=== PATIENT | female | born 1965 | race Caucasian/White ===

== ENCOUNTER 2016-04-29 13:24 | Emergency (ER) | payer OTHER ==
[2016-04-29 14:13] VITALS: BP 107/58
[2016-04-29] MEDS ORDERED: AMOX1TAB61 PO (15:02)
--- NOTE | 2016-04-29 15:03 | PHYS DOC ---
Past Medical History Past Medical History: No Pertinent History Past Surgical History: Hysterectomy Alcohol Use: None Drug Use: None Adult General Chief Complaint Chief Complaint: COUGH HPI HPI Patient is a 50 year old female presents emergency department stating that she has had a cough and congestion for the last 3 or 4 days. She states that she is coughing up green sputum. She states that she has slight tenderness in the maxillary sinus areas although she denies any frontal tenderness. She is taken [id number] medication without relief. She denies fever, chills or nausea vomiting. Review of Systems Review of Systems Constitutional: Denies fever or chills [] Eyes: Denies change in visual acuity, redness, or eye pain [] HENT: Denies nasal congestion or sore throat [] Respiratory: cough denies shortness of breath [] Cardiovascular: No additional information not addressed in HPI [] GI: Denies abdominal pain, nausea, vomiting, bloody stools or diarrhea [] : Denies dysuria or hematuria [] Musculoskeletal: Denies back pain or joint pain [] Integument: Denies rash or skin lesions [] Neurologic: Denies headache, focal weakness or sensory changes [] Allergies Allergies Allergies Coded Allergies Type Severity Reaction Last Updated Verified meperidine Allergy Intermediate 04/29/16 Yes Physical Exam Physical Exam Constitutional: Well developed, well nourished, no acute distress, non-toxic appearance. [] HENT: Normocephalic, atraumatic, bilateral external ears normal, oropharynx moist, no oral exudates, nose normal. Bilateral TM normal, throat without erythema. Bilateral anterior cervical adenopathy. no frontal or maxillary sinus tenderness. Eyes: PERRLA, EOMI, conjunctiva normal, no discharge. [] Neck: Normal range of motion, no tenderness, supple, no stridor. [] Cardiovascular:Heart rate regular rhythm, no murmur [] Lungs & Thorax: Bilateral breath sounds clear to auscultation [] Skin: Warm, dry, no erythema, no rash. [] Back: No tenderness Extremities: No tenderness, no cyanosis, no clubbing, ROM intact, no edema. [] Neurologic: Alert and oriented X 3, normal motor function, normal sensory function, no focal deficits noted. [] Psychologic: Affect normal, judgement normal, mood normal. [] Current Patient Data Vital Signs Vital Signs Date Time Temp Pulse Resp B/P Pulse Ox O2 Delivery O2 Flow Rate FiO2 04/29/16 14:13 98.0 79 18 97 Room Air 98.0 EKG EKG [] Radiology/Procedures Radiology/Procedures [] Course & Med Decision Making Course & Med Decision Making Pertinent Labs and Imaging studies reviewed. (See chart for details) Patient will be placed on Augmentin for sinusitis. Recommended Tylenol or Ibuprofen for fever, chills. Drink plenty of fluids such as water, gatorade, or propel. Signs and symptoms to return to the emergency department have been provided. Patient agrees with discharge instructions, treatment regimen and followup recommendations. [] Dragon Disclaimer Dragon Disclaimer This electronic medical record was generated, in whole or in part, using a voice recognition dictation system. Departure Departure Impression: Primary Impression: Sinusitis, acute Disposition: HOME, SELF-CARE Condition: STABLE Referrals: UNKNOWN PCP NAME (PCP) Patient Instructions: Sinusitis, [id number] Additional Instructions: Home to rest Medication as prescribed Tylenol or Ibuprofen for fever, chills or generalized body aches and discomfort Drink plenty of fluids such as water, gatorade or propel Followup with primary care provider in 5-7 days Return to emergency department as needed for signs and symptoms that become worse. Scripts Amoxicillin/Potassium Clav (Augmentin 875-125 Tablet)1 Each Tablet1 Tab PO BID # 20 TAB Prov:ANGELA BOWENS NP 04/29/16 ANGELA BOWENS NP Apr 29, 2016 15:03
== END 2016-04-29 15:21 | disposition home or self-care (01) ==
LOC: ER 13:24
DX: J01.90 Acute sinusitis, unspecified (principal); Z90.710 Acquired absence of both cervix and uterus; Z88.8 Allergy status to other drugs, medicaments and biological substances
CPT/HCPCS: 99283

== ENCOUNTER 2016-09-24 12:18 | Emergency (ER) | payer SELFPAY ==
[~2016-09-24 12:18] MED LIST: AMOX1TAB61 PO
== END 2016-09-24 12:35 | disposition left against medical advice (07) ==
LOC: ER 12:18
DX: S61.254A Open bite of right ring finger without damage to nail, initial encounter (principal); Z53.21 Procedure and treatment not carried out due to patient leaving prior to being seen by health care provider; W50.3XXA Accidental bite by another person, initial encounter; Y93.89 Activity, other specified; Y92.89 Other specified places as the place of occurrence of the external cause; Y99.8 Other external cause status

== ENCOUNTER 2017-02-20 20:17 | Emergency (ER) | payer SELFPAY ==
--- NOTE | 2017-02-20 21:18 | PHYS DOC ---
Past Medical History Past Medical History: No Pertinent History Past Surgical History: Hysterectomy Alcohol Use: None Drug Use: None Adult General Chief Complaint Chief Complaint: Congestion HPI HPI Patient is a 51 year old female who presents with sinus congestion and a cough. She states been going on for 5 day she picked it up from a family member. She denies any fevers, she feel short of breath occasionally. She denies any neck pain or headache. Review of Systems Review of Systems Constitutional: Denies fever or chills [] Eyes: Denies change in visual acuity, redness, or eye pain [] HENT: As it for green nasal discharge Respiratory: Positive for productive cough Cardiovascular: No additional information not addressed in HPI [] GI: Denies abdominal pain, nausea, vomiting, bloody stools or diarrhea [] : Denies dysuria or hematuria [] Musculoskeletal: Denies back pain or joint pain [] Integument: Denies rash or skin lesions [] Neurologic: Denies headache, focal weakness or sensory changes [] Endocrine: Denies polyuria or polydipsia [] All other systems were reviewed and found to be within normal limits, except as documented in this note. Allergies Allergies Allergies Coded Allergies Type Severity Reaction Last Updated Verified meperidine Allergy Intermediate 04/29/16 Yes Physical Exam Physical Exam Constitutional: Well developed, well nourished, no acute distress, non-toxic appearance. [] HENT: Normocephalic, atraumatic, bilateral external ears normal, oropharynx moist, no oral exudates, nose normal. Tender to palpation over the maxillary and frontal sinuses Eyes: PERRLA, EOMI, conjunctiva normal, no discharge. [] Neck: Normal range of motion, no tenderness, supple, no stridor. [] Cardiovascular:Heart rate regular rhythm, no murmur [] Lungs & Thorax: Bilateral breath sounds clear to auscultation [] Abdomen: Bowel sounds normal, soft, no tenderness, no masses, no pulsatile masses. [] Skin: Warm, dry, no erythema, no rash. [] Back: No tenderness, no CVA tenderness. [] Extremities: No tenderness, no cyanosis, no clubbing, ROM intact, no edema. [] Neurologic: Alert and oriented X 3, normal motor function, normal sensory function, no focal deficits noted. [] Psychologic: Affect normal, judgement normal, mood normal. [] EKG EKG [] Radiology/Procedures Radiology/Procedures Chest x-ray did not show any focal consolidations, bony abnormality's, pneumothorax,, as interpreted by me. Impressions: Sinusitis Course & Med Decision Making Course & Med Decision Making Pertinent Labs and Imaging studies reviewed. (See chart for details) Her symptoms are consistent with sinusitis. Been going on for 5 or more days therefore will treat with Augmentin for 7 days. She can also use Claritin over- the-counter. Return precautions given. She is agreeable to the plan being discharged in stable condition at this time. Her vitals are stable. She does not have a fever or tachypnea or hypoxemia. Dragon Disclaimer Dragon Disclaimer This electronic medical record was generated, in whole or in part, using a voice recognition dictation system. Departure Departure Impression: Primary Impression: Sinusitis, acute Disposition: 01 HOME, SELF-CARE Condition: STABLE Referrals: NO PCP (PCP) Patient Instructions: Sinusitis Additional Instructions: Her seen tonight for your sinus infection. Your chest x-ray did not show any signs of infection. Your being discharged home with Augmentin for 7 days. He can also use [id number] Claritin for nasal congestion. You will need to follow up with her primary care physician within the next week. Return back to ER if you have fevers, severe headache, neck pain, or other concerns. Scripts Amoxicillin/Potassium Clav (AUGMENTIN 875-125 TABLET) 1 Each Tablet 1 TAB PO BID, #14 TAB Prov: OSIEL ROBERTO MD 02/20/17 OSIEL ROBERTO MD Feb 20, 2017 21:18
[2017-02-20] MEDS ORDERED: AMOX1TAB61 PO (22:17)
--- NOTE | 2017-02-21 07:58 | RAD ---
Chest, 2 views, 02/20/2017: History: Productive cough The heart size and pulmonary vascularity are normal. No pulmonary infiltrates are seen. There is no evidence of pleural fluid. There is a minimal upper thoracic scoliosis. IMPRESSION: No acute cardiopulmonary abnormality is detected.
== END 2017-02-20 22:48 | disposition home or self-care (01) ==
LOC: ER 20:17
DX: J01.90 Acute sinusitis, unspecified (principal); Z88.8 Allergy status to other drugs, medicaments and biological substances
CPT/HCPCS: 71020; 99284

== ENCOUNTER 2017-09-25 11:14 | Emergency (ER) | payer SELFPAY ==
[2017-09-25] MEDS: TETRACAINE 0.5% OPHTH SOLUTION 4ML BOTTLE. OD (12:14)
[2017-09-25] MEDS: FLUORESCEIN OPHTH TEST STRIP. OD (12:17)
== END 2017-09-25 13:02 | disposition home or self-care (01) ==
LOC: ER 11:14
DX: S05.91XA Unspecified injury of right eye and orbit, initial encounter (principal); Z90.710 Acquired absence of both cervix and uterus; Z88.5 Allergy status to narcotic agent; X58.XXXA Exposure to other specified factors, initial encounter; Y93.89 Activity, other specified; Y92.89 Other specified places as the place of occurrence of the external cause; Y99.8 Other external cause status
CPT/HCPCS: 99283

== ENCOUNTER 2019-11-22 12:14 | Emergency (ER) | payer SELFPAY ==
[~2019-11-22] VITALS: Ht 165.1 cm; Wt 65.9 kg
[2019-11-22 13:20] VITALS: BP 121/73
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
[2019-11-22] MEDS ORDERED: ORPHENADRINE CITRATE 60 MG/2 ML VIAL. IM ONE (14:00)
[2019-11-22] MEDS ORDERED: HYDROcodone/APAP 5/325MG 1 TAB TABLET PO ONE (14:00)
--- NOTE | 2019-11-22 14:23 | RAD ---
Chest PA and right rib series 4 views: Reason for examination: Fell with rib pain. Comparison is made to previous chest dated 02/20/2017. The heart size is normal. Mediastinum is unremarkable. Lung marley are clear. No acute bony abnormalities are seen. 4 views of the right ribs show no definite site of fracture. IMPRESSION: No acute cardiopulmonary disease. No rib fractures evident. Electronically signed by: Melissa Thorne MD (11/22/2019 2:20 PM) RASHARD
[2019-11-22] MEDS ORDERED: ORPH100T PO (14:29)
[2019-11-22] MEDS ORDERED: HYDR-3164 PO (14:29)
== END 2019-11-22 14:31 | disposition home or self-care (01) ==
LOC: ER 12:14
DX: S20.211A Contusion of right front wall of thorax, initial encounter (principal); Z90.710 Acquired absence of both cervix and uterus; Z88.8 Allergy status to other drugs, medicaments and biological substances; W22.8XXA Striking against or struck by other objects, initial encounter; Y93.89 Activity, other specified; Y92.89 Other specified places as the place of occurrence of the external cause; Y99.8 Other external cause status
CPT/HCPCS: 71101; 96372; 99283; J2360

== ENCOUNTER 2020-04-18 20:47 | Emergency (ER) | payer SELFPAY ==
[~2020-04-18] VITALS: Ht 165.1 cm; Wt 68.1 kg
[~2020-04-18 20:47] MED LIST changes: +HYDR-3164 PO; +ORPH100T PO
[2020-04-18 21:53] LABS: BILIRUBIN,URINE NEGATIVE (NEG); CLARITY,URINE CLEAR; COLOR,URINE YELLOW; NITRITE,URINE NEGATIVE (NEG); PROTEIN,URINE NEGATIVE (NEG-TRACE); UROBILINOGEN,URINE 0.2 mg/dL (0.2 mg/dL)
[2020-04-18 22:13] LABS: AMORPHOUS SEDIMENT,UR PRESENT /HPF; BACTERIA,URINE 0 /HPF (0-FEW); RBC,URINE 0 /HPF (0-2)
[2020-04-18] MEDS ORDERED: METH4TAB2 PO (22:53)
[2020-04-18] MEDS ORDERED: HYDR-2761 PO (22:53)
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
--- NOTE | 2020-04-18 23:11 | RAD ---
EXAM: CT Lumbar Spine without IV contrast INDICATION: Reason: pain / Spl. Instructions: / History: TECHNIQUE: Multi-detector row CT images were obtained through the lumbar spine without the use of IV contrast. Post-processing sagittal and coronal reconstructed images were obtained for interpretation . All CT scans performed at this facility utilize dose optimization techniques as appropriate to the exam, including the following: Automated exposure control and adjustment of the mA and/or KV accordin g to patient size (this includes techniques or standardized protocols for targeted exams where dose i s indication/reason for exam). COMPARISON: None FINDINGS: The lowest fully formed disc is referred to as the L5-S1 level. There are 5 lumbar type vertebrae. ALIGNMENT: Subtle anterolisthesis of L5 on S1 is present. Otherwise alignment is unremarkable. OSSEOUS: Mild generalized demineralization is present. There are chronic bilateral pars defects at L 5. No acute fracture or aggressive appearing bony lesions. Mild subchondral sclerosis at S1 is presen t. DISC SPACES: Disc space narrowing is mildly apparent at L5-S1. FACET JOINTS: Unremarkable. SPINAL CANAL: Unremarkable. NEUROFORAMINA: Mild to moderate bilateral foraminal narrowing at L5-S1 is present due to disc space narrowing and mild anterolisthesis. SOFT TISSUES: Unremarkable. 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 No acute or aggressive osseous lesions and no bony central canal stenosis shown on noncontrast CT but mild bilateral foraminal narrowing at this level is noted. Electronically signed by: Vale Rodrigues MD (04/18/2020 11:00 PM) [facility] [place]
[2020-04-18 23:20] VITALS: BP 123/70
[2020-04-18] MEDS ORDERED: HYDROcodone/APAP 5/325MG 1 TAB TABLET PO ONE (23:30)
[2020-04-18] MEDS ORDERED: predniSONE 10 MG TABLET PO ONE (23:30)
== END 2020-04-18 23:25 | disposition home or self-care (01) ==
LOC: ER 20:47
DX: M54.41 Lumbago with sciatica, right side (principal); Z90.710 Acquired absence of both cervix and uterus; Z88.8 Allergy status to other drugs, medicaments and biological substances
CPT/HCPCS: 72131; 81001; 87086; 99284; J7512

== ENCOUNTER 2020-05-11 09:01 | Emergency (ER) | payer SELFPAY ==
[~2020-05-11] VITALS: Ht 165.1 cm; Wt 70.5 kg
[~2020-05-11 09:01] MED LIST changes: +HYDR-2761 PO; +METH4TAB2 PO
--- NOTE | 2020-05-11 09:28 | PHYS DOC ---
Past Medical History Past Medical History: No Pertinent History Past Surgical History: Hysterectomy Smoking Status: Never Smoker Alcohol Use: None Drug Use: None General Adult EDM: Chief Complaint: PAIN ON URINATION HPI: HPI: Patient is a 54 year old female presenting to the ED today complaining of foul-smelling urine that began 2 days ago after having intercourse. Patient denies any concerns for STDs. She believes she has a UTI. Denies any fever. Denies any abdominal pain, nausea or vomiting. Review of Systems: Review of Systems: Constitutional: Denies fever or chills. [] GI: Denies abdominal pain, nausea, vomiting, bloody stools or diarrhea. [] : Reports foul-smelling urine. Denies dysuria. [] Musculoskeletal: Denies back pain or joint pain. [] Integument: Denies rash. [] Neurologic: Denies headache, focal weakness or sensory changes. [] Psychiatric: Denies depression or anxiety. [] Heart Score: Risk Factors: Risk Factors: DM, Current or recent (<one month) smoker, HTN, HLP, family history of CAD, obesity. Risk Scores: Score 0 - 3: 2.5% MACE over next 6 weeks - Discharge Home Score 4 - 6: 20.3% MACE over next 6 weeks - Admit for Clinical Observation Score 7 - 10: 72.7% MACE over next 6 weeks - Early Invasive Strategies Allergies: Allergies: Allergies Coded Allergies Type Severity Reaction Last Updated Verified ketorolac Allergy Severe Pt states "I woke up in ICU" 04/18/20 Yes meperidine Allergy Severe 04/18/20 Yes Physical Exam: PE: Constitutional: Well developed, well nourished, no acute distress, non-toxic appearance. [] Skin: Warm, dry, no erythema, no rash. [] Back: No tenderness, no CVA tenderness. [] Extremities: No tenderness, no cyanosis, no clubbing, ROM intact, no edema. [] Neurologic: Alert and oriented X 3, normal motor function, normal sensory function, no focal deficits noted. [] Psychologic: Affect normal, judgement normal, mood normal. [] EKG: EKG: [] Radiology/Procedures: Radiology/Procedures: [] Course & Med Decision Making: Course & Med Decision Making Pertinent Labs and Imaging studies reviewed. (See chart for details) This is a 54-year-old female patient presented to the ED today complaining of foul-smelling urine, symptoms for 3 days. Positive for UTI, discharged on cephalexin. Follow-up with PCP in 1 to 2 weeks. Provided return precautions. Juju Disclaimer: Juju Disclaimer: This electronic medical record was generated, in whole or in part, using a voice recognition dictation system. Departure Departure Impression: Primary Impression: Urinary tract infection Qualified Codes: N39.0 - Urinary tract infection, site not specified Disposition: OK HOME SELF CARE/HOMELESS Condition: STABLE Referrals: NO PCP (PCP) follow up in 1 week Patient Instructions: Urinary Tract Infection Additional Instructions: You have urinary tract infection. Take the prescribed antibiotics until completed. Take Tylenol/Motrin for pain or fever. Follow-up with your doctor in 1 week. Push fluids. Come back to the ED at any point symptoms worsen. Scripts Phenazopyridine Hcl (PYRIDIUM) 100 Mg Tablet 1 TAB PO TID for urinary discomfort for 2 Days, #6 TAB 0 Refills Prov: MATTEO NICHOLE APRN 05/11/20 Cephalexin (CEPHALEXIN) 500 Mg Tablet 1 TAB PO BID, #14 TAB Prov: MATTEO NICHOLE APRN 05/11/20 MATTEO NICHOLE APRN May 11, 2020 09:28
[2020-05-11 09:47] LABS: BILIRUBIN,URINE NEGATIVE (NEG); CLARITY,URINE CLEAR; COLOR,URINE YELLOW; NITRITE,URINE NEGATIVE (NEG); PH,URINE 5.5 (<5.0-8.0); PROTEIN,URINE NEGATIVE (NEG-TRACE); UROBILINOGEN,URINE 0.2 mg/dL (0.2 mg/dL)
[2020-05-11 09:52] VITALS: BP 127/75
[2020-05-11 10:11] LABS: BACTERIA,URINE MANY /HPF (0-FEW); RBC,URINE 0 /HPF (0-2); WBC,URINE >40 /HPF (0-4)
[2020-05-11] MEDS ORDERED: CEPH500T PO (10:18)
[2020-05-11] MEDS ORDERED: PHEN100T82 PO (10:18)
== END 2020-05-11 10:48 | disposition home or self-care (01) ==
LOC: ER 09:01
DX: N39.0 Urinary tract infection, site not specified (principal); Z90.710 Acquired absence of both cervix and uterus; Z88.8 Allergy status to other drugs, medicaments and biological substances
CPT/HCPCS: 81001; 87077; 87086; 99283